=== PATIENT | female | born 1950 | race Caucasian/White ===

== ENCOUNTER 2024-02-06 10:46 | Inpatient (IN) | payer MEDICARE, OTHER ==
[~2024-02-06] VITALS: Ht 172.7 cm; Wt 117.9 kg
[2024-02-06] VITALS (10 sets, daily range): BP systolic 130–162; BP diastolic 62–81; PULSE 65–97; RESP 13–19; TEMP 97.4–98.1; O2SAT 94–97
[2024-02-06] MEDS: COMMUNICATION ORDER 1 EA MISC MC ONE (11:20)
[2024-02-06] MEDS ORDERED: heparin 25,000 UNIT/250ml bag 250 ML IV PRN (11:20)
[2024-02-06] MEDS ORDERED: heparin 10,000 units/1 ML INJ IV PRN (11:40)
[2024-02-06] MEDS: HEPARIN DRIP INITAL BOLUS --- DO NOT GIVE/ORDER MC ONE (11:40)
[2024-02-06] MEDS: MESSAGE TO NURSING IV ONE (11:45)
[2024-02-06] MEDS: heparin 25,000 UNIT/250ml bag 250 ML IV PRN (11:54)
[2024-02-06] MEDS ORDERED: magnesium hydroxide 30ml (MOM) UD suspension PO PRN (12:05)
[2024-02-06] MEDS ORDERED: magnesium sulf-water 4G/100mL 100 ML IV PRN (12:05)
[2024-02-06] MEDS ORDERED: potassium Cl 40MEQ/1/2NS 520ml 520 ML IV PRN (12:05)
[2024-02-06] MEDS ORDERED: potassium Cl 20 mEq SR tablet PO PRN ×2 (12:05)
[2024-02-06] MEDS ORDERED: magnesium sulf-water 2g/50mL 50 ML IV PRN (12:05)
[2024-02-06] MEDS ORDERED: nitroGLYCERIN 0.4mg SUBLingual tab SL PRN (12:05)
[2024-02-06 12:41] LABS: APTT 34 SECONDS (22-32); INR 1.1 INR; PROTHROMBIN TIME 11.2 SECONDS (9.0-12.0)
[2024-02-06 12:48] LABS: BASOPHILS # (AUTO) 0.1 X10'3 (0-0.2); BASOPHILS % (AUTO) 0.7 % (0-1); EOSINOPHILS # (AUTO) 0.2 X10'3 (0-0.9); EOSINOPHILS % (AUTO) 2.1 % (0-6); HEMATOCRIT 46.4 % (35.0-45.0); HEMOGLOBIN 15.6 g/dl (12.0-16.0); LYMPHOCYTES # (AUTO) 2.1 X10'3 (1.1-4.8); LYMPHOCYTES % (AUTO) 18.5 % (21-51); MEAN CORPUSCULAR HEMOGLOBIN 30.3 PG (27.0-31.0); MEAN CORPUSCULAR HGB CONC 33.5 g/dL (33.0-36.5); MEAN CORPUSCULAR VOLUME 90.5 FL (78-98); MEAN PLATELET VOLUME 8.5 FL (7.4-10.4); MONOCYTES # (AUTO) 0.7 X10'3 (0-0.9); NEUTROPHILS # (AUTO) 8.2 X10'3 (1.8-7.7); NEUTROPHILS % (AUTO) 72.7 % (42-75); PLATELET COUNT 215 X10'3 (140-440); RED BLOOD COUNT 5.13 X10'6 (4.20-5.60); RED CELL DISTRIBUTION WIDTH 14.6 % (11.5-14.5); WHITE BLOOD COUNT 11.3 X10'3 (4.5-11.0)
[2024-02-06 12:57] LABS: ALANINE AMINOTRANSFERASE 23 U/L (12-78); ALBUMIN 4.2 G/DL (3.4-5.0); ALBUMIN/GLOBULIN RATIO 1.2 (1.1-1.5); ALKALINE PHOSPHATASE 94 IU/L (46-116); ANION GAP 13 (8-16); ASPARTATE AMINO TRANSFERASE 11 U/L (10-37); BILIRUBIN,TOTAL 0.8 MG/DL (0.1-1.0); BLOOD UREA NITROGEN 17 MG/DL (7-18); BUN/CREATININE RATIO 20.7 (10.0-20.0); CALCIUM 10.1 MG/DL (8.5-10.1); CHLORIDE 108 MMOL/L (99-107); CREATININE 0.82 MG/DL (0.40-0.90); GLUCOSE 232 MG/DL (70-104); POTASSIUM 4.5 MMOL/L (3.5-5.1); SODIUM 141 MMOL/L (135-145); TOTAL CARBON DIOXIDE 19.9 MMOL/L (24-32); TOTAL PROTEIN 7.7 G/DL (6.4-8.2); eCRCL 61 ML/MIN; eGFR 68 ML/MIN
[2024-02-06 12:58] LABS: CHOL/HDL RATIO 2.4 (0.00-4.99); CHOLESTEROL 156 MG/DL (0-200); HDL CHOLESTEROL 64 MG/DL (35-60); LDL CHOLESTEROL 68 MG/DL (50-100); TRIGLYCERIDES 160 MG/DL (20-135)
[2024-02-06 13:28] LABS: HEMOGLOBIN A1C 7.3 % (4.5-6.2)
[2024-02-06] MEDS ORDERED: FLUT16SP2 BOTHNARES (13:45)
[2024-02-06] MEDS ORDERED: ALBU8HFA INH (13:45)
[2024-02-06] MEDS ORDERED: MAGN400C PO (13:45)
[2024-02-06] MEDS ORDERED: LANTUS SUBCUT (13:45)
[2024-02-06] MEDS ORDERED: ERGO400C PO (13:45)
[2024-02-06] MEDS ORDERED: METH-797 PO (13:45)
[2024-02-06] MEDS ORDERED: ERGO500093 PO (13:45)
[2024-02-06] MEDS ORDERED: ISOS30TA84 PO (13:45)
[2024-02-06] MEDS ORDERED: EMPA10TA PO (13:45)
[2024-02-06] MEDS ORDERED: GABA-1405 PO (13:45)
[2024-02-06] MEDS ORDERED: METO-395 PO (13:45)
[2024-02-06] MEDS ORDERED: FLUO10TA34 PO (13:45)
[2024-02-06] MEDS ORDERED: SPIR25TA5 PO (13:45)
[2024-02-06] MEDS ORDERED: FURO40TA4 PO (13:45)
[2024-02-06] MEDS ORDERED: BIFI4CAP2 PO (13:45)
[2024-02-06] MEDS ORDERED: LOSA25TA41 PO (13:45)
[2024-02-06] MEDS ORDERED: NITR0.4T48 SL (13:45)
[2024-02-06] MEDS ORDERED: CLOP75TA34 PO (13:45)
[2024-02-06] MEDS ORDERED: INSU100C4 SQ (13:45)
[2024-02-06] MEDS ORDERED: POTA-206 PO (13:45)
[2024-02-06] MEDS ORDERED: ASPI-1397 PO (13:45)
[2024-02-06] MEDS ORDERED: MELA10TA2 PO (13:45)
[2024-02-06] MEDS ORDERED: IPRA3AMP31 NEB (13:45)
[2024-02-06] MEDS ORDERED: ROSU40TA89 PO (13:45)
[2024-02-06] MEDS ORDERED: SIME125C43 PO (13:46)
[2024-02-06] MEDS ORDERED: CALC300T4 PO (13:46)
[2024-02-06] MEDS: aspirin 81mg, enteric-coated 1 TAB TABLET.DR PO SCH (14:31)
[2024-02-06] MEDS: metoprolol succinate 25mg (24-HOUR) SR. Tablet PO SCH (14:31)
[2024-02-06] MEDS: normal saline 1000ml 1,000 ML IV SCH (14:32)
[2024-02-06] MEDS ORDERED: iohexol 350MG/ML 100ml bottle IV ONE (15:08)
[2024-02-06] MEDS ORDERED: fentaNYL/PF 50MCG/1 ML 2ML syringe ONE ×2 (15:08→16:22)
[2024-02-06] MEDS ORDERED: midazolam 1 mg/ML 2ml injection ONE ×4 (15:08→16:22)
[2024-02-06] MEDS ORDERED: LIDOcaine 1% 30ml preserv. free vial ONE (15:08)
[2024-02-06] MEDS ORDERED: DEXTROSE 15 GM of carb/4 tabs (each vial/BOTTLE has 4 tablets) PO PRN ×2 (15:30)
[2024-02-06] MEDS ORDERED: glucagon, human recombinant 1mg kit SUBCUT PRN (15:30)
[2024-02-06] MEDS ORDERED: dextrose 50%-water 50ml dispensing syringe IV PRN ×2 (15:30)
[2024-02-06] MEDS ORDERED: heparin 1,000unit/ml 10ml vial 10 ML ONE (15:56)
[2024-02-06] MEDS ORDERED: ticagrelor 90mg tablet ONE (16:16)
[2024-02-06] MEDS: INSULIN LISPRO 100 UNIT/ML INSULN.PEN MULTI-DOSE SQ SCH (17:00)
[2024-02-06] MEDS ORDERED: ondansetron/PF 4mg/2ml inj IV PRN (17:45)
[2024-02-06] MEDS ORDERED: proCHLORperazine 10 MG/2 ml inj IV PRN (17:45)
[2024-02-06] MEDS: HYDROcodone/acetaminophen 5mg/325mg tablet PO PRN (18:13)
[2024-02-06] MEDS: K and/or MAG REPLACEMENT MC SCH (18:47)
[2024-02-06] MEDS: insulin glargine (Lantus) pen - multi-dose SQ SCH (21:00)
[2024-02-06] MEDS: docusate sod 100mg capsule PO SCH (21:20)
[2024-02-06] MEDS: HYDROcodone/acetaminophen 10/325mg tab PO PRN (21:20)
[2024-02-06] MEDS: ticagrelor 90mg tablet PO SCH (21:20)
[2024-02-06] MEDS: ondansetron/PF 4mg/2ml inj IV PRN (21:25)
[2024-02-06] MEDS: OXAZEpam 15mg capsule PO PRN (23:31)
[2024-02-07] VITALS (8 sets, daily range): BP systolic 128–146; BP diastolic 52–68; PULSE 75–92; RESP 12–23; TEMP 97–98.7; O2SAT 90–96
[2024-02-07 07:26] LABS: BASOPHILS # (AUTO) 0.1 X10'3 (0-0.2); BASOPHILS % (AUTO) 0.5 % (0-1); EOSINOPHILS # (AUTO) 0.2 X10'3 (0-0.9); EOSINOPHILS % (AUTO) 1.4 % (0-6); HEMATOCRIT 46.1 % (35.0-45.0); HEMOGLOBIN 15.4 g/dl (12.0-16.0); LYMPHOCYTES # (AUTO) 2.3 X10'3 (1.1-4.8); LYMPHOCYTES % (AUTO) 15.3 % (21-51); MEAN CORPUSCULAR HEMOGLOBIN 30.2 PG (27.0-31.0); MEAN CORPUSCULAR HGB CONC 33.5 g/dL (33.0-36.5); MEAN CORPUSCULAR VOLUME 90.2 FL (78-98); MEAN PLATELET VOLUME 8.2 FL (7.4-10.4); MONOCYTES # (AUTO) 1.1 X10'3 (0-0.9); MONOCYTES % (AUTO) 7.2 % (2-12); NEUTROPHILS # (AUTO) 11.4 X10'3 (1.8-7.7); NEUTROPHILS % (AUTO) 75.6 % (42-75); PLATELET COUNT 232 X10'3 (140-440); RED BLOOD COUNT 5.11 X10'6 (4.20-5.60); RED CELL DISTRIBUTION WIDTH 14.4 % (11.5-14.5); WHITE BLOOD COUNT 15.1 X10'3 (4.5-11.0)
[2024-02-07 07:36] LABS: ALANINE AMINOTRANSFERASE 26 U/L (12-78); ALBUMIN 3.9 G/DL (3.4-5.0); ALBUMIN/GLOBULIN RATIO 1.1 (1.1-1.5); ALKALINE PHOSPHATASE 92 IU/L (46-116); ANION GAP 11 (8-16); ASPARTATE AMINO TRANSFERASE 20 U/L (10-37); BILIRUBIN,TOTAL 1.5 MG/DL (0.1-1.0); BLOOD UREA NITROGEN 13 MG/DL (7-18); BUN/CREATININE RATIO 15.7 (10.0-20.0); CALCIUM 9.7 MG/DL (8.5-10.1); CHLORIDE 109 MMOL/L (99-107); CREATININE 0.83 MG/DL (0.40-0.90); GLUCOSE 172 MG/DL (70-104); MAGNESIUM 2.4 MG/DL (1.5-2.4); POTASSIUM 4.3 MMOL/L (3.5-5.1); SODIUM 142 MMOL/L (135-145); TOTAL CARBON DIOXIDE 22.5 MMOL/L (24-32); TOTAL PROTEIN 7.4 G/DL (6.4-8.2); eCRCL 60 ML/MIN; eGFR 67 ML/MIN
[2024-02-07] MEDS: atorvastatin 20mg tablet PO SCH (12:18)
[2024-02-07] MEDS ORDERED: TICA90TA PO (14:17)
[2024-02-07 19:51] LABS: BILIRUBIN,URINE NEGATIVE (Neg); CLARITY,URINE CLEAR (Clear); COLOR,URINE YELLOW (Yellow); GLUCOSE, URINE >=1000 mg/dl (Neg); KETONES,URINE 15 mg/dl (Neg); LEUKOCYTE ESTERASE ,URINE NEGATIVE (Neg); NITRITES, URINE NEGATIVE (Neg); OCCULT BLOOD,URINE NEGATIVE (Neg); PROTEIN,URINE NEGATIVE (Neg)
[2024-02-07] MEDS ORDERED: ticagrelor 90mg tablet PO SCH (20:00)
[2024-02-07 20:08] LABS: UA COLLECTION TYPE URINAL
[2024-02-07 20:09] LABS: BACTERIA,URINE NONE SEEN /HPF (Neg); RBC,URINE 0-2 /HPF (0-2); SQUAMOUS EPITHELIAL CELL,UR NONE SEEN /LPF (FEW); WBC,URINE 0-4 /HPF (0-4)
[2024-02-07] MEDS: heparin, porcine 5000 units/ml vial SQ SCH (21:00)
[2024-02-07] MEDS: insulin glargine (Lantus) pen - multi-dose SQ SCH (21:55)
[2024-02-08] VITALS (15 sets, daily range): BP systolic 107–148; BP diastolic 51–72; PULSE 89–111; RESP 13–29; TEMP 97.3–99.3; O2SAT 93–97
[2024-02-08] MEDS: acetaminophen 325mg tablet PO PRN (01:53)
[2024-02-08] MEDS: mag hydrox/Alum hydrox/simeth 30ml oral suspension PO PRN (03:35)
[2024-02-08 08:31] LABS: BASOPHILS % (AUTO) 0.4 % (0-1); EOSINOPHILS % (AUTO) 0.5 % (0-6); HEMATOCRIT 41.3 % (35.0-45.0); HEMOGLOBIN 13.9 g/dl (12.0-16.0); LYMPHOCYTES # (AUTO) 0.8 X10'3 (1.1-4.8); LYMPHOCYTES % (AUTO) 11.7 % (21-51); MEAN CORPUSCULAR HEMOGLOBIN 30.4 PG (27.0-31.0); MEAN CORPUSCULAR HGB CONC 33.7 g/dL (33.0-36.5); MEAN CORPUSCULAR VOLUME 90.4 FL (78-98); MEAN PLATELET VOLUME 8.1 FL (7.4-10.4); MONOCYTES # (AUTO) 0.8 X10'3 (0-0.9); MONOCYTES % (AUTO) 12.1 % (2-12); NEUTROPHILS # (AUTO) 5.2 X10'3 (1.8-7.7); NEUTROPHILS % (AUTO) 75.3 % (42-75); PLATELET COUNT 160 X10'3 (140-440); RED BLOOD COUNT 4.57 X10'6 (4.20-5.60); WHITE BLOOD COUNT 6.9 X10'3 (4.5-11.0)
[2024-02-08 09:02] LABS: ALANINE AMINOTRANSFERASE 24 U/L (12-78); ALBUMIN 3.3 G/DL (3.4-5.0); ALBUMIN/GLOBULIN RATIO 1.1 (1.1-1.5); ALKALINE PHOSPHATASE 78 IU/L (46-116); ANION GAP 9 (8-16); ASPARTATE AMINO TRANSFERASE 20 U/L (10-37); BILIRUBIN,TOTAL 1.1 MG/DL (0.1-1.0); BLOOD UREA NITROGEN 10 MG/DL (7-18); BUN/CREATININE RATIO 15.2 (10.0-20.0); CALCIUM 8.9 MG/DL (8.5-10.1); CHLORIDE 108 MMOL/L (99-107); CREATININE 0.66 MG/DL (0.40-0.90); GLUCOSE 158 MG/DL (70-104); MAGNESIUM 2.2 MG/DL (1.5-2.4); POTASSIUM 3.8 MMOL/L (3.5-5.1); SODIUM 139 MMOL/L (135-145); TOTAL CARBON DIOXIDE 21.9 MMOL/L (24-32); TOTAL PROTEIN 6.2 G/DL (6.4-8.2); eCRCL 75 ML/MIN; eGFR 88 ML/MIN
[2024-02-08] MEDS ORDERED: ATOR20TA66 PO (09:06)
[2024-02-08] MEDS: ipratropium 0.5 MG/2.5ML nebule IH SCH (10:08)
[2024-02-08] MEDS: losartan 50mg tablet PO ONE (10:42)
[2024-02-08] MEDS: methylPREDNISolone sod succ 125mg/2ml vial IV SCH (10:42)
[2024-02-08] MEDS ORDERED: budesonide 0.5mg/2ml UD nebule IH PRN (17:45)
[2024-02-08] MEDS: nitroGLYCERIN 0.4mg SUBLingual tab SL PRN (19:18)
[2024-02-08] MEDS: morphine 2 MG/ML inj. syringe IV STA (19:35)
[2024-02-08] MEDS: albuterol 2.5 MG/3 ML nebule NEB PRN (19:40)
[2024-02-08] MEDS: isosorbide mononitrate 30mg tab.SR.24H PO ONE (22:10)
[2024-02-09] VITALS (8 sets, daily range): BP systolic 115–122; BP diastolic 53–55; PULSE 80–97; RESP 18–22; TEMP 96.9–98.4; O2SAT 92–96
[2024-02-09 07:42] LABS: BASOPHILS % (AUTO) 0.1 % (0-1); EOSINOPHILS % (AUTO) 0 % (0-6); HEMATOCRIT 41.6 % (35.0-45.0); HEMOGLOBIN 13.9 g/dl (12.0-16.0); LYMPHOCYTES # (AUTO) 0.7 X10'3 (1.1-4.8); LYMPHOCYTES % (AUTO) 9.3 % (21-51); MEAN CORPUSCULAR HEMOGLOBIN 30.1 PG (27.0-31.0); MEAN CORPUSCULAR HGB CONC 33.5 g/dL (33.0-36.5); MEAN CORPUSCULAR VOLUME 89.8 FL (78-98); MEAN PLATELET VOLUME 8.7 FL (7.4-10.4); MONOCYTES # (AUTO) 0.3 X10'3 (0-0.9); NEUTROPHILS # (AUTO) 6.4 X10'3 (1.8-7.7); NEUTROPHILS % (AUTO) 86.6 % (42-75); PLATELET COUNT 172 X10'3 (140-440); RED BLOOD COUNT 4.63 X10'6 (4.20-5.60); RED CELL DISTRIBUTION WIDTH 14.2 % (11.5-14.5); WHITE BLOOD COUNT 7.4 X10'3 (4.5-11.0)
[2024-02-09 08:49] LABS: ALANINE AMINOTRANSFERASE 22 U/L (12-78); ALBUMIN 3.2 G/DL (3.4-5.0); ALBUMIN/GLOBULIN RATIO 0.9 (1.1-1.5); ALKALINE PHOSPHATASE 72 IU/L (46-116); ANION GAP 12 (8-16); ASPARTATE AMINO TRANSFERASE 14 U/L (10-37); BILIRUBIN,TOTAL 0.6 MG/DL (0.1-1.0); BLOOD UREA NITROGEN 21 MG/DL (7-18); BUN/CREATININE RATIO 27.3 (10.0-20.0); CALCIUM 9.3 MG/DL (8.5-10.1); CHLORIDE 107 MMOL/L (99-107); CREATININE 0.77 MG/DL (0.40-0.90); GLUCOSE 263 MG/DL (70-104); MAGNESIUM 2.5 MG/DL (1.5-2.4); SODIUM 139 MMOL/L (135-145); TOTAL CARBON DIOXIDE 20.2 MMOL/L (24-32); TOTAL PROTEIN 6.6 G/DL (6.4-8.2); eCRCL 65 ML/MIN; eGFR 73 ML/MIN
[2024-02-09] MEDS ORDERED: NITR0.4T51 SL (11:24)
== END 2024-02-09 12:30 | disposition home or self-care (01) | DRG 321 ==
LOC: ER 10:47 → ED HOLD 12:11 → PCU 3S 16:46
PROVIDERS: ADMIT Nurse Practitioner Family; ATTEND Nurse Practitioner Family
PROC: 027034Z Dilation of Coronary Artery, One Artery with Drug-eluting Intraluminal Device, Percutaneous Approach (ICD-10-PCS; 2024-02-06)
PROC: 4A023N7 Measurement of Cardiac Sampling and Pressure, Left Heart, Percutaneous Approach (ICD-10-PCS; 2024-02-06)
PROC: B2111ZZ Fluoroscopy of Multiple Coronary Arteries using Low Osmolar Contrast (ICD-10-PCS; 2024-02-06)
PROC: B2151ZZ Fluoroscopy of Left Heart using Low Osmolar Contrast (ICD-10-PCS; 2024-02-06)
PROC: 5A09357 Assistance with Respiratory Ventilation, Less than 24 Consecutive Hours, Continuous Positive Airway Pressure (ICD-10-PCS; principal; 2024-02-08)
PROC: 5A09357 Assistance with Respiratory Ventilation, Less than 24 Consecutive Hours, Continuous Positive Airway Pressure (ICD-10-PCS; 2024-02-09)
DX: I21.4 Non-ST elevation (NSTEMI) myocardial infarction (principal); I50.31 Acute diastolic (congestive) heart failure; I42.9 Cardiomyopathy, unspecified; G47.33 Obstructive sleep apnea (adult) (pediatric); E11.9 Type 2 diabetes mellitus without complications; E78.5 Hyperlipidemia, unspecified; K58.9 Irritable bowel syndrome, unspecified; I25.10 Atherosclerotic heart disease of native coronary artery without angina pectoris; I48.91 Unspecified atrial fibrillation; E66.01 Morbid (severe) obesity due to excess calories; K21.9 Gastro-esophageal reflux disease without esophagitis; I11.0 Hypertensive heart disease with heart failure; M79.7 Fibromyalgia; Z83.3 Family history of diabetes mellitus; Z82.5 Family history of asthma and other chronic lower respiratory diseases; Z86.73 Personal history of transient ischemic attack (TIA), and cerebral infarction without residual deficits; Z95.1 Presence of aortocoronary bypass graft; Z88.0 Allergy status to penicillin; Z88.1 Allergy status to other antibiotic agents; Z88.5 Allergy status to narcotic agent; Z88.8 Allergy status to other drugs, medicaments and biological substances; Z79.899 Other long term (current) drug therapy; Z95.5 Presence of coronary angioplasty implant and graft; Z79.4 Long term (current) use of insulin; Z79.82 Long term (current) use of aspirin; Z68.39 Body mass index [BMI] 39.0-39.9, adult
CPT/HCPCS: 93306; 93458; 99285; C9600; 36415; 71045; 80053; 80061; 81001; 82948; 83036; 83735; 84145; 84484; 85025; 85610; 85730; 93005; 94640; 94760; 99152; 99153; A4615; A6258; C1725; C1751; C1760; C1769; C1874; G0378; J1644; J1815; J2003; J2250; J2270; J2405; J2919; J3010; J7030; Q9967